=== PATIENT | male | born 1965 | race Caucasian/White ===

== ENCOUNTER 2018-02-12 11:00 | Outpatient (CLI) | payer OTHER | END 2018-02-12 11:01 | disposition home or self-care (01) | LOC: SC 11:00 | PROVIDERS: ATTEND Internal Medicine Pulmonary Disease | DX: G47.33 Obstructive sleep apnea (adult) (pediatric) (principal) | CPT/HCPCS: 99203; 99212 ==

== ENCOUNTER 2018-04-04 15:54 | Outpatient (CLI) | payer OTHER | END 2018-04-04 15:55 | disposition home or self-care (01) | LOC: SC 15:54 | PROVIDERS: ATTEND Nurse Practitioner Family | DX: G47.33 Obstructive sleep apnea (adult) (pediatric) (principal) | CPT/HCPCS: 99215 ==

== ENCOUNTER 2018-05-28 15:14 | Outpatient (CLI) | payer OTHER | END 2018-05-28 15:15 | disposition home or self-care (01) | LOC: SC 15:14 | PROVIDERS: ATTEND Nurse Practitioner Family | DX: G47.33 Obstructive sleep apnea (adult) (pediatric) (principal) | CPT/HCPCS: 99212; 99214 ==

== ENCOUNTER 2018-08-29 15:49 | Outpatient (CLI) | payer OTHER | END 2018-08-29 15:50 | disposition home or self-care (01) | LOC: SC 15:49 | PROVIDERS: ATTEND Nurse Practitioner Family | DX: G47.33 Obstructive sleep apnea (adult) (pediatric) (principal) | CPT/HCPCS: 99212; 99214 ==

== ENCOUNTER 2019-06-19 15:48 | Outpatient (CLI) | payer OTHER ==
[2019-06-19 16:49] VITALS: BP 140/80
--- NOTE | 2019-06-19 16:49 | SLEEP CARE CONSULTATION ---
Information from patient questionnaire entered by Candi Smith. I have reviewed and concur with the information entered by Candi Smith. This document represents the service I personally performed and the decisions made by me, Dorys Nash, RN, MSN, DISPLAY MANAGER. - History of Present Illness HPI: LEONELA GANT was diagnosed to have severe, AHI 73.1, obstructive sleep apnea- hypopnea syndrome and returned today for CPAP therapy six month follow-up. Since last seen is that he has been changing his diet intake to reduce carbs and has started to lose weight. His goal is to get to at least 220 pounds. He has been getting a little more sleep and feels that he is getting more quality of sleep. He did not try the CPAP pillow as he felt it would not work for him. The pad a cheek strap covers have reduced mask duran. Equipment obtained from: [employer] Mask style: Nasal Mask brand: Respironics Backup mask available: Yes Last cushion change: last week, but only every few months - Compliance Data Reviewed with Patient Average duration of nightly device use: 6.5 Compliance rate % (4+hrs/night over past 30 nights): 97.2 (180 days) Current pressure setting (cmH2O): 4-15 Humidity settin Heated hose settin Average residual AHI: 2.9 Average large leak: 7 mins 39 secs - Subjective Patient concerns: reports: nasal congestion (chronic-turbinate reduction. Afrin used nightly so can breathe through nose. Has used nasal steroid in past with good results.), dry mouth, nose, throat (about 2-3 times a week.). denies: aerophagia, mask discomfort, air blowing in eyes, mask leak noise, condensation in mask/hose, epistaxis, other Observed to snore while using device: No Current pressure setting perceived as: comfortable On therapy, patient: reports: sleeping better, awakening more refreshed, being more awake and alert during the day, more rested overall, other (denies drowsy driving.). denies: drowsiness while driving Initial [place] Sleepiness Scale score: 15 Current [place] Sleepiness Scale score: 8 - Review of Systems Cardiovascular: reports: high blood pressure, leg or foot swelling Gastrointestinal: reports: heartburn Neurological: reports: headaches, head trauma (in 1988) Ear/Nose/Throat: reports: nasal congestion, sinus problems, injury to nose (in 1988) Musculoskeletal: reports: joint pain (right shoulder) - Allergies/Medications Medication Name (generic/name brand) Strength & Dosage Lisinopril 30mg tab one daily Fenofibrate 160mg tab one daily HCTZ 50mg tab one daily Aspirin 81mg tab one daily Fluticasone Propionate 50 MCG/ACT Inhale two strays into each nostril daily Cyclobenzaprine HCI 10mg tab one daily at bedtime PRN Sqjnkhjhql-RXPR-Wtrjcmul 50-300-40mg Cap one or two every 4h PRN Metronidazole 1% external gel One application to affected area daily No known drug allergies: No Allergies and home medications reviewed: Yes - Physical Examination Blood Pressure: 140/80 Cuff size: long Heart Rate: 86 O2 Saturation: 96 Height: 5 ft 10.5 in Weight (kg): 134.173 kg Body Mass Index: 41.8 BMI Classification: Class 3 - Impression 1. Obstructive Sleep Apnea-Hypopnea Syndrome, very severe, with good treatment compliance and good apnea control. On CPAP therapy, there is improved sleep quality and continues to feel more rested overall. To reduce mask leaks, he is advised to change his mask cushions more frequently and at least monthly. I gave him the supply replacement list showing how often he can get supplies. For nasal dryness, I showed him how to increase his humidity. Since he is also having irritation of left septum with scant scab and bloody drainage, I also gave him samples of Kaela Ease nasal cream to use as directed 4 times a day for 7-10 days and then as needed. Printed information given. For nasal congestion, it is preferred not to continue Afrin as can excacerbate his nasal congestion. Thus I will prescribe Flonase nasal spray to be used Bid with 3 refills. Patient's apnea severity and rationale for treatment to reduce apnea, improve sleep quality and reduce cardiovascular and cerebrovascular events was reviewed. I also reviewed the benefit of consistent device use of CPAP for hypertension, migraines. His weight loss was also addressed and I showed him goal weight on BMI chart and how weight loss affects his CPAP pressure requirements. Thus I will keep him on his current autoCPAP range to accommodate his future weight loss. - Plan Patient Coaching: Instructed to keep current mask when replaced to keep as a spare mask. Explained that weight loss or gain may change the CPAP requirement. Praised for weight loss. Discussed symptoms to report to adjust PAP pressure. Plan: Continue auto CPAP pressure at 4-15 cm H2O. Notify me if snoring with the mask or feeling that the pressure is too much or too little. Continue to lose weight. Return for follow-up in one year, or sooner if concerns arise. I spent 100% of this 40 minute visit face to face with the patient with greater than 50% of this was spent time counseling the patient and coordination of care.
== END 2019-06-19 15:49 | disposition home or self-care (01) ==
LOC: SC 15:48
PROVIDERS: ATTEND Nurse Practitioner Family
DX: G47.33 Obstructive sleep apnea (adult) (pediatric) (principal)
CPT/HCPCS: 99212; 99215

== ENCOUNTER 2020-08-04 16:21 | Outpatient (CLI) | payer BC | END 2020-08-04 16:22 | disposition home or self-care (01) | LOC: COV 16:21 | PROVIDERS: ATTEND Family Medicine | DX: Z20.828 Contact with and (suspected) exposure to other viral communicable diseases (principal) ==

== ENCOUNTER 2021-06-11 15:24 | Outpatient (CLI) | payer BC ==
--- NOTE | 2021-06-11 16:04 | SLEEP CARE CONSULTATION ---
Information from patient questionnaire entered by Candi Smith. I have reviewed and concur with the information entered by Candi Smith. This document represents the service I personally performed and the decisions made by , Shannon Rueda ARNP. History of Present Illness Service Date and Time: 06/11/2021 1524 Previous diagnosis: Very Severe, Obstructive Sleep Apnea-Hypopnea Syndrome AHI: 68.7 (in 2018)(3% - 73.5) Reason for follow up: annual (last seen 05/2020) Equipment type: CPAP Equipment obtained from: [employer] (getting supplies as needed; he has limited their deliveries) Mask style: Nasal Backup mask available: Yes (old mask) Last cushion change: 5 weeks Prior sleep studies: Yes Year and Where: 2018 - [facility] HPI additional information: LEONELA GANT was diagnosed to have very severe, AHI 68.7, obstructive sleep apnea-hypopnea syndrome and returned today for CPAP therapy annual follow-up. CPAP Compliance Data - Data Reviewed with Patient Average duration of nightly device use: 5 hr 59 min Compliance rate %: 98.3 (180 days) Current pressure setting (cmH2O): 8-12 Humidity settin Heated hose settin Average residual AHI: 1.9 Average large leak: 1 min 22 sec Subjective Missed days of use due to: reports: travel Patient concerns: reports: nasal congestion (in 2-3 AM for last 4-5 months), other (unit is under recall). denies: aerophagia, mask discomfort, air blowing in eyes, mask leak noise, condensation in mask/hose, dry mouth, nose, throat, epistaxis Observed to snore while using device: No Current pressure setting perceived as: comfortable On therapy, patient: reports: sleeping better, awakening more refreshed, being more awake and alert during the day, more rested overall. denies: drowsiness while driving Initial [place] Sleepiness Scale score: 15 (in 2018) Current [place] Sleepiness Scale score: 7 Allergies and Home Medications Home medication list reviewed: Yes (no changes) Review of Systems Review of systems same as previous: Yes (no changes) Physical Exam Heart Rate: 83 O2 Saturation: 97 Height: 5 ft 10.5 in Weight: 313 lb Body Mass Index: 44.2 BMI Classification: Morbidly Obese Impression and Plan 1. Obstructive Sleep Apnea-Hypopnea Syndrome, very severe, with good treatment compliance and good apnea control. On CPAP therapy, the patient has better sleep quality and is more rested overall. Patient states he heard about the recall on his device. He also states the machine was broken during one of his trips for work. There is a crack in the plastic case near the hose and he has heard air leaking. He would like to replace his device because he states it no longer meets his needs. Thus, I will try to get the CPAP updated. A [facility] prescription will be made. Compliance guidelines for new device and follow up discussed. Discussed the [employer] recall with patient. Patient was encouraged to register their device online with [id number] with the recall. Patient denies any black particles, unusual odors coming from device or any physical symptoms such as upper airway irritation. Patient informed that they may use an inline CPAP filter that they can obtain online to reduce chance of any particles being inhaled or ingested. We discussed thoroughly the health risks of not using the CPAP versus continuing use with the filter in place. If patient is not able to sleep due to waking up choking, gasping for air or other respiratory distress that they may decide to continue using it until it is either replaced or repaired. Patient voiced understanding and agreement with plan. Patient's apnea severity and rationale for treatment to reduce apnea, improve sleep quality and reduce cardiovascular and cerebrovascular events was reviewed. I also reviewed the benefit of consistent device use of CPAP for hypertension and migraines. Patient encouraged to lose weight. * Continue auto CPAP pressure at 8-12 cmH2O * Update/Replace machine * Notify me if snoring with mask or feeling that the pressure is too much or too little * Attempt to lose weight * Call this office if any problems using CPAP * Return for follow up in 1 year, or sooner if concerns arise Counseling Topics: Spare mask, Weight loss health impact Visit Type: In Office Time Spent with Patient (minutes): 25 Provider Statement: I spent 100% of the Face to Face Visit with the patient with greater than 50% spent counseling the patient and coordination of care.
== END 2021-06-11 15:25 | disposition home or self-care (01) ==
LOC: SC 15:24
PROVIDERS: ATTEND Nurse Practitioner Family
DX: G47.33 Obstructive sleep apnea (adult) (pediatric) (principal); E66.01 Morbid (severe) obesity due to excess calories; Z68.41 Body mass index [BMI] 40.0-44.9, adult
CPT/HCPCS: 99212; 99213